=== PATIENT | male | born 1955 | race Caucasian/White ===

== ENCOUNTER → 2021-09-10 08:20 | Outpatient (BNVA) | payer OTHER, SELFPAY | PROVIDERS: Visit Provider Family Medicine | DX: Z00.00 Encounter for general adult medical examination without abnormal findings (principal) | CPT/HCPCS: 80053; 80061; 82607; 83036; 84153; 84443 ==

== ENCOUNTER 2021-12-16 06:00 | Outpatient (RCR) | payer OTHER, SELFPAY | END 2022-01-04 23:59 | disposition home or self-care (01) | LOC: SPT 06:00 | PROVIDERS: PCP Family Medicine; Visit Provider Family Medicine | DX: M12.811 Other specific arthropathies, not elsewhere classified, right shoulder (principal) | CPT/HCPCS: 97110; 97161 ==

== ENCOUNTER 2022-01-05 06:00 | Outpatient (RCR) | payer OTHER, SELFPAY | END 2022-01-22 23:59 | disposition home or self-care (01) | LOC: SPT 06:00 | PROVIDERS: PCP Family Medicine; Visit Provider Family Medicine | DX: M12.811 Other specific arthropathies, not elsewhere classified, right shoulder (principal) | CPT/HCPCS: 97110 ==

== ENCOUNTER 2022-03-04 12:07 | Outpatient (CLI) | payer OTHER, SELFPAY ==
--- NOTE | 2022-03-04 13:00 | MR_ITS ---
WS: [id number] MRI RIGHT SHOULDER HISTORY: Right shoulder pain COMPARISON: None available. TECHNIQUE: Multiplanar sequences of the shoulder joint are submitted. Moderate to severe AC joint arthritis. Joint space narrowing and edema along the AC ligament. Hypertr ophic bone formation encroaching upon the myotendinous insertion of the supraspinatus. No os acromion . There is a small amount of fluid in the subacromial and subdeltoid bursa. Biceps tendon and bicipit al groove is normal. There is increased signal and edema within the rotator cuff interval. Glenohumeral joint is normal. The very distal subscapularis tendon is not identified. There is increa sed T2 signal and a normal tendon is not identified distally. Infraspinatus and supraspinatus muscles are normal size. No significant atrophy or edema. Very tiny insertion site tear involving the most a nterior supraspinatus tendon. Abnormal signal within the anterior superior labrum. There is at least intrasubstance degeneration. More focal labral tear is suspected anteriorly. MR/MR shoulder RT wo con* [id number] IMPRESSION: 1. 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 2. Distal subscapularis tendon is not identified. Suspect tear distally with r etraction of the tendon. 3. Additional insertion site tear of the anterior most supraspinatus tendon is small. 4. Edema within the rotator cuff interval with adjacent anterior superior labr al signal abnormality. Intrasubstance degeneration with anterior labral tear aguiar spected.
== END 2022-03-04 12:08 | disposition home or self-care (01) ==
PROVIDERS: PCP Family Medicine; Visit Provider Family Medicine
DX: M19.011 Primary osteoarthritis, right shoulder (principal); R60.0 Localized edema
CPT/HCPCS: 73221

== ENCOUNTER → 2022-07-29 08:51 | Outpatient (BNVA) | payer OTHER, SELFPAY | PROVIDERS: PCP Family Medicine; Visit Provider Nurse Practitioner Family | DX: M19.011 Primary osteoarthritis, right shoulder (principal); M75.101 Unspecified rotator cuff tear or rupture of right shoulder, not specified as traumatic | CPT/HCPCS: 73030 ==

== ENCOUNTER 2022-08-27 08:21 | Outpatient (CLI) | payer OTHER, SELFPAY ==
[2022-08-27 08:56] LABS: Basophils % 0.4 %; Eosinophils # 0.1 10^3/uL (0.0-0.8); Eosinophils % 1.5 %; Hematocrit 41.6 % (42.0-52.0); Hemoglobin 13.1 g/dL (11.7-16.6); Lymphocytes # 1.2 10^3/uL (0.8-4.8); Mean Corpuscular HGB Conc 31.5 g/dL (30.0-36.0); Mean Corpuscular Hemoglobin 29.2 pg (28.0-34.0); Mean Corpuscular Volume 92.7 fl (80-94); Mean Platelet Volume 8.7 fL (7.4-10.4); Monocytes # 0.5 10^3/uL (0.2-0.9); Monocytes % 6.9 %; Neutrophils # 4.92 10^3/uL (1.8-7.7); Neutrophils % 72.8 %; Nucleated Red Blood Cells % 0 %; Platelet Count 283 10^3/cmm (130-400); Red Blood Count 4.49 10^6/uL (4.1-5.3); Red Cell Distribution Width 12.8 % (12.1-15.1); White Blood Count 6.8 10^3/uL (4.0-10.0)
[2022-08-27 09:14] LABS: Estmated Average Glucose 114; Hemoglobin A1C 5.6 % (4.0-6.0)
[2022-08-27 09:26] LABS: Alanine Aminotransferase 10 U/L (0-41); Albumin Level 4.1 g/dL (3.5-5.2); Alkaline Phosphatase 93 U/L (40-130); Blood Urea Nitrogen 16 mg/dL (8-23); Carbon Dioxide 25 mmol/L (22-29); Chloride 99 mmol/L (98-107); Chol HDL Ratio 4.59 mg/dL (1.0-5.00); Cholesterol 147 mg/dL (0-200); Globulin 3.1 g/dL (1.3-4.6); Glomerular Filtration Rate 84.4 mL/min (90-130); Glucose 95 mg/dL (65-115); HDL Cholesterol 32 mg/dL (60-100); LDL Cholesterol Calculated 87 mg/dL (50-129); LDL HDL Ratio 2.72 RATIO (0.00-3.22); Osmolality Calculated 285 mOsm/kg (285-295); Sodium 137 mmol/L (136-145); Thyroid Stimulating Hormone 2.16 uIU/mL (0.27-4.20); Total Bilirubin 0.4 mg/dL (0.15-1.2); Total Protein 7.2 g/dL (6.6-8.7); Triglycerides 139 mg/dL (0-150)
[2022-08-27 09:27] LABS: Anion Gap 17.3 (5-19); Aspartate Amino Transferase 14 U/L (0-40); Potassium 4.3 mmol/L (3.5-5.1)
== END 2022-08-27 08:22 | disposition home or self-care (01) ==
PROVIDERS: PCP Family Medicine; Visit Provider Family Medicine
DX: Z00.00 Encounter for general adult medical examination without abnormal findings (principal); E03.9 Hypothyroidism, unspecified; Z79.899 Other long term (current) drug therapy
CPT/HCPCS: 36415; 80053; 80061; 83036; 84443; 85025

== ENCOUNTER 2022-09-14 07:49 | Day surgery (SDC) | payer OTHER, SELFPAY ==
[2022-09-13 10:09] VITALS: BMI 28.5
[2022-09-14] VITALS (14 sets, daily range): BP systolic 137–171; BP diastolic 70–86; PULSE 48–60; RESP 14–16; TEMP 36.1–36.6; O2SAT 92–100
[2022-09-14] MEDS: acetaminophen 1,000 MG/100 ML PIGGYBACK 400 MG IV (08:25)
[2022-09-14] MEDS: sodium chloride 0.9% 1,000 ML 30 ML IV (08:26)
[2022-09-14] MEDS: ketorolac 30 mg/mL INJ IVP (08:26)
[2022-09-14 08:35] LABS: Glucose Point of Care 104 mg/dL (70-110)
--- NOTE | 2022-09-14 09:08 | W.PM.OPSUD ---
Surgery/Procedure H&P Update DATE OF PROCEDURE: September 14, 2022 DATE H&P PERFORMED: 09/09/22 CHANGES TO PREVIOUS DOCUMENTATION: No change in HPI from previous visit on 09/09/2022. Patient ready proceed with surgical intervention all questions answered. PREOP DIAGNOSIS: Right shoulder rotator cuff tear, AC joint arthritis, subacromial impingeme PRIMARY INDICATION FOR PROCEDURE: Right shoulder rotator cuff tear, AC joint arthritis and subacromial impingement PLANNED PROCEDURE: Operation Date: 09/14/22 09:35 Proposed Procedures p Right shoulder diagnostic and surgical arthroscopy with rotator cuff repair and acromioplasty 79684, and AC joint resection [id number], M19.019,(Right) - Nir Maki, DO s Rotator Cuff Repair - Open(Right) - Nir Maki DO s Acromioplasty(Right) - Nir Maki DO s AC Joint Resection(Right) - Nir Maki, DO
--- NOTE | 2022-09-14 09:14 | ANES.PREANE2 ---
Pre-Anesthetic Assessment Height/Weight: Height 1.7 m Weight 82.554 kg Temp Pulse Resp BP Pulse Ox O2 Del Method 97.8 F 60 16 159/81 98 Room Air 09/14/22 08:08 09/14/22 08:08 09/14/22 08:08 09/14/22 08:08 09/14/22 08:08 09/14/22 08:08 Preop Diagnosis: Right shoulder rotator cuff tear, AC joint arthritis, subacromial impingeme Operation Date: 09/14/22 09:35 Proposed Procedures p Right shoulder diagnostic and surgical arthroscopy with rotator cuff repair and acromioplasty 00112, and AC joint resection [id number], M19.019,(Right) - Nir Glynn, DO s Rotator Cuff Repair - Open(Right) - Nir Glynn, DO s Acromioplasty(Right) - Nir Glynn, DO s AC Joint Resection(Right) - Nir Glynn, DO Familial anesthetic complications: None Was Beta Mason taken within 24 hours: N/A Was Clonidine taken within 24 hours: N/A Last intake: Intake Last Liquid Date 09/13/22 Last Liquid Time 23:30 Last Solid Date 09/13/22 Last Solid Time 20:00 Social No alcohol and No tobacco Exam alert, oriented x 3, clear to auscultation bilaterally and regular rate & rhythm Airway Mallampati: Class III Dentition: full CV/HEM Hypertension Metabolic Diabetes Mellitus, Hyperlipidemia and Thyroid Disease Anesthetic Plan ASA status: 3 Anesthesia: General Other: Patient prefers to assess his need for nerve block post operatively rather than receive pre-op block. Will check on patient in recovery Risk of > 500 ml blood loss (7ml/kg in children): No Medications/Allergies Home Medications Medication Instructions Recorded Confirmed Last Taken Type lisinopril 20 1 tab PO DAILY 11/04/21 09/13/22 09/13/22 History mg-hydrochlorothiazide 12.5 mg tablet mecobalamin (vitamin B12) 1,000 1,000 mcg sublingual DAILY 11/04/21 09/13/22 09/13/22 History mcg disintegrating tablet,sublingual sildenafil 25 mg tablet 75 mg PO DAILY PRN Sexual Activity 11/04/21 09/13/22 Unknown History zinc acetate 50 mg (zinc) capsule 50 mg PO DAILY 11/04/21 09/13/22 09/13/22 History (Galzin) levothyroxine 50 mcg tablet 50 mcg PO DAILY 12/02/21 09/13/22 09/14/22 History meloxicam 15 mg tablet 15 mg PO DAILY PRN Mild Pain 12/02/21 09/13/22 09/13/22 History (Scale Score 1-4) lancets (Accu-Chek Softclix #100 ea 01/07/22 09/13/22 Unknown Rx Lancets) pravastatin 40 mg tablet 40 mg PO DAILY #90 tabs 01/07/22 09/13/22 09/13/22 Rx blood sugar diagnostic (Contour #100 ea 01/10/22 09/13/22 Unknown Rx Next Test Strips) metformin 1,000 mg tablet 1,000 mg PO BID #180 tabs 02/13/22 09/13/22 09/13/22 Rx diltiazem HCl 120 mg tablet 120 mg PO BID #180 tabs 02/18/22 09/13/22 09/14/22 Rx cyclobenzaprine 5 mg tablet 5 mg PO TID PRN muscle spasm 7 08/11/22 09/13/22 09/07/22 Rx days #21 tabs hydrocodone 5 mg-acetaminophen 325 1 tab PO Q8H PRN pain 2 weeks #30 08/26/22 09/13/22 Unknown Rx mg tablet tabs Allergies Allergy/AdvReac Type Severity Reaction Status Date / Time Penicillins Allergy Mild ADR-Nausea Verified 09/13/22 10:03 Current Medications Generic Name Dose Route Start Last Admin Trade Name Freq PRN Reason Stop Dose Admin Sodium Chloride 1,000 mls @ 30 mls/hr 09/14/22 08:00 09/14/22 08:26 Sodium Chloride 0.9% IV 09/15/22 07:59 30 mls/hr .Q24H SHANDA Administration PFSH Anesthesia Medical History Acromioclavicular joint arthritis Axonal polyneuropathy Diabetes mellitus Dyslipidemia Essential hypertension Hypothyroid Rotator cuff arthropathy of right shoulder Rotator cuff tear, right Subacromial impingement of right shoulder Surgical History No pertinent past surgical history Social History Smoking and tobacco status: current every day smoker smokeless tobacco Smokeless tobacco user: snuff Alcohol intake: current Alcohol intake frequency: holidays/special occasions only Substance/Drug Use: never Data Anesthesia Cardiac Studies: No Data to Display
--- NOTE | 2022-09-14 09:29 | ECG_ITS ---
[facility] Test Date: 2022-09-14 Pat Name: Jason Madison Department: Room: Gender: Male [employer]: : 1955 Requested By: Majo Auguste Order Number: [id number] Marquis MD: Valentina Young M.D. Measurements Intervals [place] Rate: 50 P: 77 ND: 103 QRS: 21 QRSD: 78 T: 90 QT: 416 QTc: 383 Interpretive Statements SINUS BRADYCARDIA WITH SHORT ND INTERVAL NONSPECIFIC T-WAVE ABNORMALITY No previous ECG available for comparison Electronically Signed On 09-14-2022 9:54:14 CDT by Valentina Young M.D. [email or web address]
[2022-09-14] MEDS: ceFAZolin 2,000 MG in sodium chloride 0.9% (plus) 50 ML 100 MG IV (10:47)
--- NOTE | 2022-09-14 11:52 | ANES.PROC ---
Anesthesia Procedures Procedure/Date: 09/14/22 Nerve Block ^: Nerve Block 1: Main Anesthesia: general anesthesia Time Out Performed: Yes Consent: requested by attending/covering physician, from patient, from other and risks and benefits reviewed Nerve block location: interscalene (R) Anesthesia monitors applied: pulse oximetry, EKG, BP cuff and oxygen Nerve block position: semi sitting Anesthetic Used: ropivicaine 0.5% (20 ml) and with decadron (4 mg) Ultrasound used to: recognize landmarks and visualize and ID interscalene groove Nerve Stimulator Used?: Yes Interscalene/Femoral BLK: 4 stimuplex 21 g needle used for position and inplane approach, visualize local anesthetic spread and no vascular puncture identified Patient Tolerated Procedure: well Complications: none Additional Comments: performed by Zoya wright CRNA
--- NOTE | 2022-09-14 12:24 | P.OP_ITS ---
Brief Operative Note Date of procedure: 09/14/22 Pre-op diagnosis: Right shoulder AC joint arthritis, rotator cuff tear, subacr omial impingeme Post-op diagnosis: same (And labral tear, biceps tendinitis and tearing) Procedure Done: Right shoulder diagnostic and surgical arthroscopy with rotator cuff repair Right shoulder diagnostic and surgical arthroscopy biceps tenotomy Right shoulder diagnostic and surgical arthroscopy labral debridement Right shoulder diagnostic and surgical arthroscopy subacromial decompression (acromioplasty and bursectomy) Right shoulder diagnostic and surgical arthroscopy acromioclavicular joint resection (distal clavicle excision) Surgeon: Nir Maki Estimated blood loss (mL): 5 Complications: None Post-op Plan: Patient taken to PACU in stable condition recovering well. Will follow rotator cuff repair protocol. Being abduction pillow with sling. Strict no active range of motion and nonweightbearing to the right shoulder. Receive appropriate discharge instructions as well as pain medication postoperatively. Condition: stable Disposition: same day Coding Level of Care Code Acute Code for Tao Fontaine
--- NOTE | 2022-09-14 12:28 | P.OP_ITS ---
Operative Report Date of procedure: September 14, 2022 Pre-op diagnosis: Preop Diagnosis Right shoulder rotator cuff tear, AC joint arthritis, subacromial impingeme Procedure: Post-op diagnosis: Right shoulder labral tear Right shoulder biceps tendon tear Right shoulder rotator cuff tear Right shoulder AC joint arthritis Right shoulder subacromial bursitis/impingement Procedure done: Right shoulder diagnostic and surgical arthroscopy with arthroscopic rotator cuff repair Right shoulder diagnostic and surgical arthroscopy biceps tenotomy Right shoulder diagnostic and surgical arthroscopy labral debridement Right shoulder diagnostic and surgical arthroscopy acromioclavicular joint resection Right shoulder diagnostic and surgical arthroscopy subacromial decompression (acromioplasty and bursectomy) Surgeon: Nir Maki DO Estimated blood loss: 5mL IV fluids: See anesthesia record Implants: Arthrex 4.75 swivel lock Arthrex scorpion and suture tape Complications: None Condition: stable Disposition: same day Brief History: Patient been seen and worked up in the outpatient setting for right shoulder pain.? Pt had an MRI which showed findings below.? Patient's failed conservative treatment and has weakness.? We talked about treatment options far as nonoperative and operative intervention..? We talked about risk benefits complication alternatives surgical nonsurgical treatment options.? Understanding risk of surgery he agrees to proceed with surgical intervention.? All questions have been answered at this time.? Patient elects proceed with surgery and consent obtained in office. MR/MR shoulder RT wo con* [id number] IMPRESSION: ? 1.? 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 2.? Distal subscapularis tendon is not identified. Suspect tear distally with retraction of the tendon. 3.? Additional insertion site tear of the anterior most supraspinatus tendon is small. 4.? Edema within the rotator cuff interval with adjacent anterior superior labral signal abnormality. Intrasubstance degeneration with anterior labral tear suspected. Procedure: Patient seen evaluated in the preoperative holding area.? Consent reviewed and signed with patient.? Once again reviewed patient's MRI results as well as? planned surgical intervention.? Correct extremity marked.? Patient seen evaluated by anesthesia department received regional anesthesia.? Once ready for surgery was taken back to the operative suite.? Patient then subsequently underwent anesthesia per the anesthesia department was transported onto the OR table.? Patient was then placed into a lateral decubitus position with a beanbag and was appropriately secured to the bed.? All bony prominences well-padded.? Michael hunter then had the right upper extremity was then prepped and draped in standard orthopedic fashion.? Patient received appropriate preoperative antibiotics.? Final timeout performed. The right upper extremity was then held in hanging from traction utilizing sterile technique.? Next started with standard diagnostic and surgical arthroscopy with posterior portal position introduced arthroscope into the glenohumeral joint.? Visualized the glenohumeral joint I then introduced a spinal needle within the rotator cuff interval to confirm appropriate anterior portal placement.? Once this was confirmed I then made my small incision and then introduced my arthroscopic shaver into the glenohumeral joint.? After thorough debridement was clearly evident patient had a significant erythema as well as positive liftoff sign of the biceps anchor and biceps tendon tear as it was pulled within the joint.? Decision at this time was made to perform a biceps tenotomy.? Introduced a thermal wand and a biceps tenotomy was performed to completion With appropriate release.? Next I evaluated the subscapularis tendon which was intact and no evidence of tear. ?Next there was significant labral tearing at biceps anchor and circumferential.? ? I then subsequently utilized a a arthroscopic shaver and thermal wand to perform a labral debridement.? This point time I then visualized the glenohumeral joint.? The glenohumeral joint was found to have grade 1-2? chondromalacia throughout.? Infrapatellar pouch was free of loose bodies from viewing the posterior portal.? Next a visualized the rotator cuff superiorly and there was found to be a small undersurface tearing of the supraspinatus tendon.? I utilized a spinal needle to janet this location.?? This completed my work within the glenohumeral joint all fluid was suctioned free of the joint.? ?Next I reintroduced the arthroscope posteriorly.? And went to the subacromial space.? I established my lateral working portal at the site of which my spinal needle was marking of the rotator cuff tear.? Thermal wand was then introduced laterally and then I subsequently performed extensive bursectomy of the subacromial space.? Patient had a large anterior bone spur.? At this point time I proceeded with my AC joint resection thermal wand was used and track to the anterior edge of the acromion and then tracked all the way to the AC joint.? Once identified the AC joint this was very arthritic in nature.? Thermal wand was placed anteriorly to establish appropriate plane for AC joint resection.? Once appropriate margins and anterior inferior and anterior capsule was released I then introduced arthroscopic shaver and a bur and performed AC joint resection of both the acromion to cope plane at the AC joint and a distal clavicle resection was then performed totaling 1 cm in size and was confirmed.? This completed my AC joint resection and I then introduced the arthroscopic shaver laterally while continuing to view posteriorly.? I then performed an ac romioplasty to complete my subacromial decompression prior to fixing the rotator cuff tear.? Next the arthroscopic shaver was then used previous spinal needle spot that is marked the small hole in the rotator cuff this was consistent with a small full- thickness tear.? Given the small size this did not need a medial and lateral row configuration as result my plan was for a horizontal mattress stitch with a single lateral row anchor.? As result I loaded and Arthrex scorpion with fiber tape and subsequently.? A horizontal mattress purchase appropriately spaced to the small tear of the supraspinatus tendon.? At this point in time and then introduced a shaver to debride the rotator cuff footprint and decorticate the footprint in preparation for repair, next I marked by swivel lock position.? F iber tape was then loaded into a 475 swivel lock I then subsequently punched and then subsequently placement 4.75 swivel lock while maintaining appropriate tension and repair of rotator cuff and this was advanced with excellent fixation I then had a final confirmation of appropriate repair of the supraspinatus rotator cuff tendon tear.? Sutures were then cut with an arthroscopic suture cutter and subsequently evaluated the rotator cuff repair.? Repair was found to be satisfactory shoulder was taken through range of motion and the repair moved as a unit with no evidence of loss of fixation. ?I then switched the arthroscope to the lateral portal to confirm this tension- free repair.? I took the shoulder through range of motion and the rotator cuff repair was stable and moved as a unit. ?Next I then introduced the arthroscopic shaver posteriorly to complete my subacromial decompression appropriate complaining all the way up to the lateral edge of the acromion.? This completed the surgery.? All fluid was suctioned from the shoulder.? All instruments were removed.? The lateral incision was then closed with nylon stitches.? As well as the portal sites closed with portal nylon stitches.? Xeroform 4 x 4's ABD and tape was then applied to the right shoulder and was placed into a shoulder abduction pillow sling for rotator cuff repair.? Patient was then awakened from anesthesia and then taken back to PACU in stable condition.? Patient tolerated procedure without any issues. Disposition: Patient taken back in stable condition recovering well.? Dressings on in place clean dry and intact.? Will be nonweightbearing to the right upper extremity.? Follow rotator cuff repair protocol.? Patient to follow-up with me in the office in 2 weeks.? Patient will receive appropriate discharge instruction as well as pain medication postoperatively.? All questions answered.? We will contact the office for any questions or concerns.
--- NOTE | 2022-09-14 12:28 | P.PCN_ITS ---
PACU note Narrative: Patient seen and evaluated in PACU recovering well. Patient's received regional anesthesia unable to assess motor or sensory at this time. Sling on in place to the right shoulder dressings are in place clean dry and intact. Hand warm well- perfused brisk capillary refill less than 2 seconds Exam: awake Disposition: discharged
--- NOTE | 2022-09-14 12:40 | ANE.PACU2 ---
Inpatient post-anesthesia follow up: Airway intact: Yes Vital signs: Temperature 97.2 F Pulse Rate 51 Respiratory Rate 16 Blood Pressure 152/75 Pulse Oximetry 98 Oxygen Delivery Me thod Room Air Oxygen Flow Rate 6 Fraction of Inspir ed Oxygen Hydration adequate: Yes Nausea and vomiting: Yes Pain level: 1 Mental status: Baseline
[2022-09-14] MEDS: oxyCODONE 5 mg IR Tab/Cap PO (13:45)
== END 2022-09-14 14:43 | disposition home or self-care (01) ==
PROVIDERS: PCP Family Medicine; Visit Provider Student in an Organized Health Care Education/Training Program
PROC: (CPT 29805; principal; 2022-09-14 09:25)
PROC: (CPT 24310; 2022-09-14 09:25)
PROC: 0RSG0ZZ Reposition Right Acromioclavicular Joint, Open Approach (ICD-10-PCS; CPT 29823; 2022-09-14 09:25)
PROC: (CPT 29827; 2022-09-14 09:25)
PROC: (CPT 29826; 2022-09-14 09:25)
DX: M75.101 Unspecified rotator cuff tear or rupture of right shoulder, not specified as traumatic (principal); M19.011 Primary osteoarthritis, right shoulder; M75.41 Impingement syndrome of right shoulder; I10 Essential (primary) hypertension; E11.9 Type 2 diabetes mellitus without complications; E78.5 Hyperlipidemia, unspecified; E03.9 Hypothyroidism, unspecified; Z79.891 Long term (current) use of opiate analgesic; Z79.84 Long term (current) use of oral hypoglycemic drugs; F17.290 Nicotine dependence, other tobacco product, uncomplicated; R00.1 Bradycardia, unspecified
CPT/HCPCS: 29823; 29824; 29826; 29827; 29828; 36416; 82962; 93005; C1713; J0131; J0690; J1100; J1885; J2250; J2405; J2704; J2795; J3010; J3490; J7030

== ENCOUNTER 2022-09-30 06:00 | Outpatient (RCR) | payer OTHER, SELFPAY | END 2022-10-04 23:59 | disposition home or self-care (01) | LOC: SOT 06:00 | PROVIDERS: Visit Provider Student in an Organized Health Care Education/Training Program | DX: Z47.89 Encounter for other orthopedic aftercare (principal) | CPT/HCPCS: 97110; 97165; 97530 ==

== ENCOUNTER 2022-10-05 06:00 | Outpatient (RCR) | payer OTHER, SELFPAY | END 2022-11-04 23:59 | disposition home or self-care (01) | LOC: SOT 06:00 | PROVIDERS: Visit Provider Student in an Organized Health Care Education/Training Program | DX: Z47.89 Encounter for other orthopedic aftercare (principal) | CPT/HCPCS: 97110; 97140 ==

== ENCOUNTER 2022-11-05 06:00 | Outpatient (RCR) | payer OTHER, SELFPAY | END 2022-12-04 23:59 | disposition home or self-care (01) | LOC: SOT 06:00 | PROVIDERS: Visit Provider Student in an Organized Health Care Education/Training Program | DX: Z47.89 Encounter for other orthopedic aftercare (principal) | CPT/HCPCS: 97110; 97140 ==

== ENCOUNTER 2022-12-05 06:00 | Outpatient (RCR) | payer OTHER, SELFPAY | END 2023-01-04 23:59 | disposition home or self-care (01) | LOC: SOT 06:00 | PROVIDERS: PCP Family Medicine; Visit Provider Student in an Organized Health Care Education/Training Program | DX: Z47.89 Encounter for other orthopedic aftercare (principal) | CPT/HCPCS: 97110 ==

== ENCOUNTER → 2022-12-07 09:15 | Outpatient (BNVA) | payer OTHER, SELFPAY | PROVIDERS: PCP Family Medicine; Visit Provider Student in an Organized Health Care Education/Training Program | DX: M75.42 Impingement syndrome of left shoulder; Z98.890 Other specified postprocedural states | CPT/HCPCS: 73030 ==

== ENCOUNTER → 2023-08-24 11:21 | Outpatient (BNVA) | payer OTHER, SELFPAY | PROVIDERS: PCP Family Medicine; Visit Provider Clinical Nurse Specialist Adult Health | DX: M10.9 Gout, unspecified (principal) | CPT/HCPCS: 84550 ==

== ENCOUNTER → 2023-08-25 07:54 | Outpatient (BNVA) | payer OTHER, SELFPAY | PROVIDERS: PCP Family Medicine; Visit Provider Family Medicine | DX: M10.9 Gout, unspecified (principal) | CPT/HCPCS: 84550 ==

== ENCOUNTER → 2023-09-01 10:42 | Outpatient (BNVA) | payer OTHER, SELFPAY | PROVIDERS: PCP Family Medicine; Visit Provider Family Medicine | DX: Z00.00 Encounter for general adult medical examination without abnormal findings (principal); I10 Essential (primary) hypertension; E11.9 Type 2 diabetes mellitus without complications; E03.9 Hypothyroidism, unspecified; R35.1 Nocturia | CPT/HCPCS: 80053; 83036; 84153; 84443 ==

== ENCOUNTER → 2024-02-16 11:52 | Outpatient (BNVA) | payer MEDICARE, SELFPAY | PROVIDERS: PCP Family Medicine; Visit Provider Family Medicine | DX: I10 Essential (primary) hypertension (principal); E11.9 Type 2 diabetes mellitus without complications; E03.9 Hypothyroidism, unspecified | CPT/HCPCS: 80053; 80061; 83036; 84443 ==

== ENCOUNTER → 2024-06-26 07:59 | Outpatient (BNVA) | payer MEDICARE, SELFPAY | PROVIDERS: PCP Family Medicine; Visit Provider Nurse Practitioner Family | DX: L82.1 Other seborrheic keratosis (principal); D22.5 Melanocytic nevi of trunk; D48.5 Neoplasm of uncertain behavior of skin | CPT/HCPCS: 11102; 17000; 99203 ==

== ENCOUNTER → 2024-07-16 07:53 | Outpatient (BNVA) | payer MEDICARE, SELFPAY | PROVIDERS: PCP Family Medicine; Visit Provider Dermatology | DX: C44.41 Basal cell carcinoma of skin of scalp and neck (principal) | CPT/HCPCS: 13132; 17311 ==

== ENCOUNTER → 2025-01-08 08:21 | Outpatient (BNVA) | payer MEDICARE, SELFPAY | PROVIDERS: PCP Family Medicine; Visit Provider Family Medicine | DX: Z00.00 Encounter for general adult medical examination without abnormal findings (principal); I10 Essential (primary) hypertension; E78.5 Hyperlipidemia, unspecified; E11.9 Type 2 diabetes mellitus without complications; E03.9 Hypothyroidism, unspecified; R35.1 Nocturia | CPT/HCPCS: 80053; 80061; 83036; 84153; 84443; 85025 ==

== ENCOUNTER → 2025-02-04 15:17 | Outpatient (BNVA) | payer MEDICARE, SELFPAY | PROVIDERS: PCP Family Medicine; Visit Provider Nurse Practitioner Family | DX: L57.8 Other skin changes due to chronic exposure to nonionizing radiation (principal); L81.4 Other melanin hyperpigmentation; L82.1 Other seborrheic keratosis; D18.01 Hemangioma of skin and subcutaneous tissue; Z08 Encounter for follow-up examination after completed treatment for malignant neoplasm; Z85.828 Personal history of other malignant neoplasm of skin; L57.0 Actinic keratosis | CPT/HCPCS: 17000; 99213 ==